=== PATIENT | male | born 1975 ===

== ENCOUNTER 2024-03-09 10:50 | Outpatient (CLI) | payer BC, SELFPAY | END 2024-03-09 10:51 | disposition home or self-care (01) | PROVIDERS: PCP Family Medicine; Visit Provider Family Medicine | DX: Z12.5 Encounter for screening for malignant neoplasm of prostate (principal); Z11.3 Encounter for screening for infections with a predominantly sexual mode of transmission; Z13.29 Encounter for screening for other suspected endocrine disorder; Z13.220 Encounter for screening for lipoid disorders; Z13.228 Encounter for screening for other metabolic disorders | CPT/HCPCS: 80053; 80061; 84443; 86803; G0103 ==

== ENCOUNTER 2024-03-16 09:13 | Outpatient (CLI) | payer BC, SELFPAY ==
--- NOTE | 2024-03-16 09:30 | CRLHL7_ITS ---
For Patients: As a result of the Century Cures Act, medical imaging exams and procedure reports are released immediately into your electronic medical record. You may view this report before your referring provider. If you have questions, please contact your health care provider. INDICATION: Abdominal pain TECHNIQUE: Conventional two-dimensional grayscale ultrasound of the right upper quadrant. COMPARISON: None FINDINGS: The gallbladder is normal, with no evidence of stones. No gallbladder wall thickening or pericholecystic fluid is demonstrated. The patient is reportedly not tender over the gallbladder. No biliary ductal dilation is evident. The common bile duct measures 4 mm. The liver is normal in size, shape and echogenicity. The pancreas is within normal limits. The right kidney is normal in size and shape. The renal parenchyma is normal in echogenicity. Number of small stones are present right collecting system. No hydronephrosis is evident. The visualized portion of the abdominal aorta and inferior vena cava are negative. IMPRESSION: 1. Normal gallbladder and bile ducts. 2. Right renal collecting system stones. Dictated by Carlitos Barragan MD @ 03/16/2024 4:23:02 PM (Electronically Signed)
== END 2024-03-16 09:14 | disposition home or self-care (01) ==
LOC: US 09:14
PROVIDERS: PCP Family Medicine; Visit Provider Family Medicine
DX: R10.9 Unspecified abdominal pain (principal); N20.0 Calculus of kidney
CPT/HCPCS: 76705

== ENCOUNTER 2024-03-16 09:15 | Outpatient (CLI) | payer BC, SELFPAY ==
--- NOTE | 2024-03-16 10:30 | CRLHL7_ITS ---
For Patients: As a result of the Century Cures Act, medical imaging exams and procedure reports are released immediately into your electronic medical record. You may view this report before your referring provider. If you have questions, please contact your health care provider. INDICATION: Unintentional weight loss epigastric pain nausea vomiting diarrhea TECHNIQUE: CT chest, abdomen and pelvis acquired with 91 mL Isovue 370 contrast. Multiplanar axial, coronal, and sagittal reformats are included. MIP images provided COMPARISON: None. FINDINGS: CHEST: Cardiovascular structures: Heart size is normal. Thoracic aorta and main pulmonary artery are normal in caliber. Mediastinum and dionisio: No mass or adenopathy. Lungs and pleura: Emphysema basilar atelectasis Chest wall and axilla: No mass or adenopathy. ABDOMEN AND PELVIS: Liver: 1.1 centimeter lesion in the peripheral right hepatic lobe with nodular enhancement this likely reflects a hemangioma. Gallbladder and bile ducts: Unremarkable. Pancreas: Unremarkable. Spleen: Unremarkable. Adrenal glands: Unremarkable. Kidneys: Small nonobstructing right renal calculi nonobstructing right renal calculi. GI tract: Abundant stool in the colon diverticulosis. Normal appendix Vascular structures: Abdominal aorta is normal in caliber. Lymph nodes: Unremarkable. Miscellaneous: Unremarkable. No free air or significant free fluid. Pelvic Organs: Minimally prominent prostate gland Bones: No suspicious bone lesions. Unremarkable for age. IMPRESSION: 1. No acute findings in the chest abdomen or pelvis. Probable small hemangioma in the right hepatic lobe. Please note that all CT scans at this facility use dose modulation, iterative reconstruction, and/or weight-based dosing when appropriate to reduce radiation dose to as low as reasonably achievable. Dictated by Sasha Conner MD @ 03/17/2024 9:03:56 AM (Electronically Signed)
== END 2024-03-16 09:16 | disposition home or self-care (01) ==
LOC: CT 09:16
PROVIDERS: PCP Family Medicine
DX: R63.4 Abnormal weight loss (principal); R10.13 Epigastric pain; R11.2 Nausea with vomiting, unspecified; R19.7 Diarrhea, unspecified
CPT/HCPCS: 71260; 74177; Q9967